=== PATIENT | female | born 1990 | race American Indian/Alaskan Native ===

== ENCOUNTER 2019-07-03 14:03 | Emergency (ER) | payer SELFPAY ==
[2019-07-03 14:25] VITALS: BP 121/52; PULSE 98
--- NOTE | 2019-07-03 15:23 | EDM.PDOC ---
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 Her last LMP was 05/21/19. She had a positive test on . She started having cram[ing on Friday. She started having some vaginal bleeding yesterday around 0900HRS. It was light at first and progressively got more throughout the day. She states last evening she passed a couple 50 cent size clots and then this morning also. Onset Date: 07/02/19 Duration: Constant Location: Reports: Pelvis, Other (vaginal bleeding) Quality: Reports: Other (Cramping) Severity: Mild Improves with: Reports: None Worsens with: Reports: None Associated Symptoms: Reports: No Other Symptoms Right Lower Abdomen Pain Score (Numeric/FACES): 2 - Related Data Allergies Allergy/AdvReac Type Severity Reaction Status Date / Time No Known Allergies Allergy Verified 07/03/19 14:24 Home Meds: Home Meds . 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 ED EXAM, RENAL/ - Physical Exam Exam: See Below Exam Limited By: No Limitations General Appearance: Alert, WD/WN, No Apparent Distress Throat/Mouth: Normal Voice Head: Atraumatic, Normocephalic Neck: Normal Inspection Respiratory/Chest: No Respiratory Distress, Lungs Clear Cardiovascular: Regular Rate, Rhythm GI/Abdominal: Normal Bowel Sounds, Soft, Non-Tender, No Distention, No Abnormal Bruit, No Mass, Pelvis Stable. No: Guarding, Rigid, Rebound (Female) Exam: Deferred Back Exam: Normal Inspection, Full Range of Motion. No: CVA Tenderness (L), CVA Tenderness (R) Neurological: Alert, Oriented, No Motor/Sensory Deficits Psychiatric: Normal Affect, Normal Mood Skin Exam: Warm, Dry, Intact, Normal Color, No Rash Course - Vital Signs Last Recorded V/S: Last Vital Signs Temp 98.4 F 07/03/19 14:06 Pulse 98 07/03/19 14:06 Resp 16 07/03/19 14:06 BP 121/52 L 07/03/19 14:06 Pulse Ox 100 07/03/19 14:06 - Orders/Labs/Meds Orders: Active Orders 24 hr Category Date Time Status ABO/RH TYPE [BBK] Stat Lab 07/03/19 14:39 Received Labs: Laboratory Tests 07/03/19 07/03/19 07/03/19 Range/Units 14:05 14:05 14:39 WBC 7.8 (5.0-10.0) 10^3/uL RBC 4.49 (4.2-5.4) 10^6/uL Hgb 13.8 (12.0-16.0) g/dL Hct 40.0 (37.0-47.0) % MCV 89.1 (80-100) fL MCH 30.7 (27.0-34.0) pg MCHC 34.5 (33.0-35.0) g/dL Plt Count 251 D (150-450) 10^3/uL Neut % (Auto) 55.3 (42.2-75.2) % Lymph % (Auto) 33.8 (20.5-50.1) % [place] % (Auto) 6.2 (2-8) % Eos % (Auto) 4.2 H (1.0-3.0) % Baso % (Auto) 0.5 (0.0-1.0) % HCG, Qual Urine Color Yellow (YELLOW) Urine Appearance Slightly cloudy (CLEAR) Urine pH 5.5 (5.0-9.0) Ur Specific [place] 1.010 (1.005-1.030) Urine Protein Negative (NEGATIVE) Urine Glucose (UA) Negative (NEGATIVE) Urine Ketones Negative (NEGATIVE) Urine Occult Blood Large H (NEGATIVE) Urine Nitrite Negative (NEGATIVE) Urine Bilirubin Negative (NEGATIVE) Urine Urobilinogen 0.2 (0.2-1.0) mg/dL Ur Leukocyte Esterase Negative (NEGATIVE) Urine RBC 20-30 H /HPF Urine WBC 0-5 (0-5/HPF) /HPF Ur Epithelial Cells Few (NOT SEEN) /HPF Amorphous Sediment Rare (NOT SEEN) /HPF Urine Bacteria Rare (0-FEW/HPF) /HPF Urine Mucus Rare (NOT SEEN) /LPF Urine HCG, Qual Negative 07/03/19 Range/Units 14:39 WBC (5.0-10.0) 10^3/uL RBC (4.2-5.4) 10^6/uL Hgb (12.0-16.0) g/dL Hct (37.0-47.0) % MCV (80-100) fL MCH (27.0-34.0) pg MCHC (33.0-35.0) g/dL Plt Count (150-450) 10^3/uL Neut % (Auto) (42.2-75.2) % Lymph % (Auto) (20.5-50.1) % [place] % (Auto) (2-8) % Eos % (Auto) (1.0-3.0) % Baso % (Auto) (0.0-1.0) % HCG, Qual Negative Urine Color (YELLOW) Urine Appearance (CLEAR) Urine pH (5.0-9.0) Ur Specific [place] (1.005-1.030) Urine Protein (NEGATIVE) Urine Glucose (UA) (NEGATIVE) Urine Ketones (NEGATIVE) Urine Occult Blood (NEGATIVE) Urine Nitrite (NEGATIVE) Urine Bilirubin (NEGATIVE) Urine Urobilinogen (0.2-1.0) mg/dL Ur Leukocyte Esterase (NEGATIVE) Urine RBC /HPF Urine WBC (0-5/HPF) /HPF Ur Epithelial Cells (NOT SEEN) /HPF Amorphous Sediment (NOT SEEN) /HPF Urine Bacteria (0-FEW/HPF) /HPF Urine Mucus (NOT SEEN) /LPF Urine HCG, Qual - Re-Assessments/Exams Free Text/Narrative Re-Assessment/Exam: 07/03/19 15:17 I explained the exam and lab results to the pt. The urine HCG and serum qual. HCG are both negative. Pt acknowledges understanding that US is not indicated and would be unlikely to see a this early. Pt understands that she may have a spont. AB of a very early , or may be having a irregular menses. Departure - Departure Time of Disposition: 15:19 Disposition: Home, Self-Care 01 Condition: Good Clinical Impression: Negative test - Discharge Information *PRESCRIPTION DRUG MONITORING PROGRAM REVIEWED*: No *COPY OF PRESCRIPTION DRUG MONITORING REPORT IN PATIENT ABRAM: No Instructions: Test Information, Miscarriage, [id number] Forms: ED Department Discharge Additional Instructions: Repeat a test in 4 to 5 days. Return to ER or see your doctor immediately if you develop a fever, have heavy vaginal bleeding (completely soaking one or more large pads per hour for 2 or more hours), or if you develop severe pelvic pain. Follow up with your [facility] [employer] doctor in the next week or two for recheck. - My Orders Last 24 Hours: My Active Orders 07/03/19 14:39 ABO/RH TYPE [BBK] Stat - Assessment/Plan Last 24 Hours: My Active Orders 07/03/19 14:39 ABO/RH TYPE [BBK] Stat I have read and agree with the documentation that has been completed regarding this visit. By signing this record, I attest that the documentation was completed in my physical presence and is an accurate record of the encounter.
== END 2019-07-03 15:38 | disposition home or self-care (01) ==
LOC: DL.ED 14:03
DX: Z32.02 Encounter for pregnancy test, result negative (principal); F17.200 Nicotine dependence, unspecified, uncomplicated
CPT/HCPCS: 36415; 81001; 81025; 84703; 85025; 86900; 86901; 99284